=== PATIENT | female | born 1935 | race Caucasian/White ===

== ENCOUNTER 2016-07-22 11:05 | Inpatient (IN) | payer MEDICARE, MEDICAID ==
--- NOTE | 2016-07-22 11:06 | ED Physician Chart ---
Chief Complaint/HPI - Patient Information Date Seen:: 07/22/16 Time Seen:: 11:06 Chief Complaint:: altered level of consciousness History of Present Illness:: 80-year-old female brought in by EMS with acute, constant, moderate, altered level of consciousness that started yesterday. Has associated increased agitation. History limited as patient has underlying dementia History provided by EMS and EMS run sheet Allergies:: Allergies Allergy/AdvReac Type Severity Reaction Status Date / Time MDX No Known Allergies - Nka Allergy Verified 06/27/15 11:21 [No Known Allergies - Nka] Historian:: EMS Review:: Nurse's Note Reviewed, EMS run form Reviewed, Transfer documents Reviewed Review of Systems - Review of Systems Other: Complete system review otherwise unremarkable except as noted in HPI. Past Medical History - Past Medical History Past Medical History: HTN, Thyroid disorder, Dementia Family History: None Social History: Non Smoker, No Alcohol, No Drug Use, Care Facility Surgical History: None Psychiatricy History: Dementia Medication: Reviewed Family Medical History - Family Member Mother History Unknown: Yes Ethnicity: Non- Living Status: Physical Exam - Physical Examination Other:: INITIAL VITAL SIGNS: Reviewed by me GENERAL: Alert and interactive but demented and confused. No acute distress HEAD: Head is normocephalic and atraumatic EYES: EOMI. . No scleral icterus. No conjunctival injection ENT: Moist mucous membranes. NECK: Supple. No masses. Full range of motion RESPIRATORY: No tachypnea. Clear breath sounds bilaterally. No wheezing, rales, or rhonchi CV: Regular rate and rhythm. No murmurs, rubs, or gallops ABDOMEN: Soft, non-distended, non-tender. No guarding. No rebound. No masses. EXTREMITIES: No deformity. No cyanosis. No edema. SKIN: Warm and dry. No obvious rashes. NEUROLOGIC: Alert and oriented. Face is symmetric. Speech is normal. Moves all extremities equally. Motor and sensory distally intact. Labs/Radiology/EKG Results - Lab Results Results: Lab Results 07/22/16 07/22/16 07/22/16 Range/Units 11:25 11:25 11:25 WBC 5.1 D (4.8-10.8) Th/cmm RBC 4.43 (3.80-5.20) Mil/cmm Hgb 13.1 (11.7-16.1) gm/dL Hct 39.3 (35.0-45.0) % MCV 88.6 (81-100) fl MCH 29.6 (27.0-31.0) pg MCHC Differential 33.4 (28.0-36.0) pg RDW 14.5 (11.5-20.0) % Plt Count 188 (150-400) Th/cmm MPV 10.4 fl Neutrophils (Manual) 67 (40-80) % Lymphocytes 20 (20-50) % Monocytes 10 (2-10) % Eosinophils 3 (0-5) % Platelet Estimate ADEQUATE (NORMAL) Platelet Morphology NORMAL (NORMAL) RBC Morph Micro Appear NORMAL (NORMAL) PT 9.7 (9.5-11.5) SECONDS INR 0.98 (0.5-1.4) PTT (Actin FS) 25.0 L (26.0-38.0) SECONDS Sodium 138 (136-145) mEq/L Potassium 3.6 (3.5-5.1) mEq/L Chloride 107 (98-107) mEq/L Carbon Dioxide 23.8 (21.0-31.0) mEq/L Anion Gap 10.8 (7.0-16.0) BUN 33 H (7-25) mg/dL Creatinine 1.0 (0.6-1.2) mg/dL Est GFR ( Amer) TNP Est GFR (Non-Af Amer) TNP BUN/Creatinine Ratio 33.0 Glucose 95 (70-105) mg/dL Whole Bld Lactic Acid (0.60-1.99) mmol/L Calcium 10.4 H (8.6-10.3) mg/dL Total Bilirubin 0.4 (0.3-1.0) mg/dL AST 22 (13-39) U/L ALT 16 (7-52) U/L Alkaline Phosphatase 78 (34-104) U/L Total Protein 8.1 (6.0-8.3) gm/dL Albumin 4.9 (3.7-5.3) gm/dL Globulin 3.2 gm/dL Albumin/Globulin Ratio 1.5 (1.0-1.8) 07/22/16 Range/Units 11:25 WBC (4.8-10.8) Th/cmm RBC (3.80-5.20) Mil/cmm Hgb (11.7-16.1) gm/dL Hct (35.0-45.0) % MCV (81-100) fl MCH (27.0-31.0) pg MCHC Differential (28.0-36.0) pg RDW (11.5-20.0) % Plt Count (150-400) Th/cmm MPV fl Neutrophils (Manual) (40-80) % Lymphocytes (20-50) % Monocytes (2-10) % Eosinophils (0-5) % Platelet Estimate (NORMAL) Platelet Morphology (NORMAL) RBC Morph Micro Appear (NORMAL) PT (9.5-11.5) SECONDS INR (0.5-1.4) PTT (Actin FS) (26.0-38.0) SECONDS Sodium (136-145) mEq/L Potassium (3.5-5.1) mEq/L Chloride (98-107) mEq/L Carbon Dioxide (21.0-31.0) mEq/L Anion Gap (7.0-16.0) BUN (7-25) mg/dL Creatinine (0.6-1.2) mg/dL Est GFR ( Amer) Est GFR (Non-Af Amer) BUN/Creatinine Ratio Glucose (70-105) mg/dL Whole Bld Lactic Acid 1.51 (0.60-1.99) mmol/L Calcium (8.6-10.3) mg/dL Total Bilirubin (0.3-1.0) mg/dL AST (13-39) U/L ALT (7-52) U/L Alkaline Phosphatase (34-104) U/L Total Protein (6.0-8.3) gm/dL Albumin (3.7-5.3) gm/dL Globulin gm/dL Albumin/Globulin Ratio (1.0-1.8) - Radiology Results Results: Single AP VIEW Portable Chest X-ray was interpreted independently and contemporaneously by Mary Crabtree MD: Cardiomegaly Normal mediastinum No lung infiltrates No pneumothorax No soft tissue or bony abnormalities CT head without contrast per radiology No acute disease - EKG Interpretations Comments:: 12-lead EKG Interpretation by Mary Crabtree MD: Normal Sinus Rhythm with ventricular rate of 75 beats per minute Normal axis Normal intervals No acute ST or T wave changes. No obvious STEMI ED Septic Shock - . Is Septic Shock (SBP<90, OR Lactate>4 mmol\L) present?: No Reassessment (Disposition) - Reassessment Reassessment:: Patient appears to have altered level of consciousness. CT head is unremarkable. Labs essentially unremarkable. No infectious source noted. Discussed case with the admitting physician. Patient will need further workup and treatment. Admitted for altered level of consciousness. Reassessment Condition:: Unchanged - Diagnosis Diagnosis:: Altered level of consciousness Hypertension - Patient Disposition Discharge/Transfer:: Acute Care w/in this hosp Admitted to:: Med/Surg Spoke to:: Merritt Kennedy Admitting Medical Physician:: Zack Harper Time:: 13:06 Condition at Disposition:: Stable ED Discharge Plan - Patient Disposition Admit/Discharge/Transfer: Acute Care w/in this hosp
[2016-07-22] MEDS ORDERED: Sodium Chloride 0.9% 1,000 ML IV ONE (11:10)
[2016-07-22] MEDS ORDERED: cefTRIAXone 1 GM in Sodium Chloride 0.9% 50 ML IV ONE (11:10)
[2016-07-22 11:38] LABS: HEMATOCRIT 39.3 % (35.0-45.0); HEMOGLOBIN 13.1 gm/dL (11.7-16.1); MEAN CELL VOLUME 88.6 fl (81-100); MEAN CORPUSCULAR HEMOGLOBIN 29.6 pg (27.0-31.0); MEAN CORPUSCULAR HGB CONC 33.4 pg (28.0-36.0); MEAN PLATELET VOLUME 10.4 fl; PLATELET COUNT 188 Th/cmm (150-400); RED BLOOD COUNT 4.43 Mil/cmm (3.80-5.20); RED CELL DISTRIBUTION WIDTH 14.5 % (11.5-20.0)
[2016-07-22 11:46] LABS: INR 0.98 (0.5-1.4); PROTHROMBIN TIME (TEST) 9.7 SECONDS (9.5-11.5)
--- NOTE | 2016-07-22 11:47 | Diagnostic Imaging Report ---
Portable chest x-ray HISTORY: Pain The heart is enlarged. There is elevation the right hemidiaphragm. No acute focal pulmonary processes. No hilar or mediastinal abnormalities. IMPRESSION: 1. No acute abnormalities 2. Cardiomegaly
[2016-07-22 11:52] LABS: ALB/GLOB RATIO 1.5 (1.0-1.8); ALKALINE PHOSPHATASE 78 U/L (34-104); ANION GAP 10.8 (7.0-16.0); BILIRUBIN,TOTAL 0.4 mg/dL (0.3-1.0); BUN - UREA NITROGEN 33 mg/dL (7-25); CALCIUM SERUM 10.4 mg/dL (8.6-10.3); CARBON DIOXIDE 23.8 mEq/L (21.0-31.0); CHLORIDE 107 mEq/L (98-107); GLUCOSE 95 mg/dL (70-105); POTASSIUM SERUM 3.6 mEq/L (3.5-5.1); SGOT 22 U/L (13-39); SGPT/ALT 16 U/L (7-52); SODIUM SERUM 138 mEq/L (136-145)
[2016-07-22 11:55] LABS: WHITE BLOOD COUNT 5.1 Th/cmm (4.8-10.8)
[2016-07-22 12:00] LABS: EOSINOPHIL 3 % (0-5); NEUTROPHILS 67 % (40-80); TOTAL CELLS COUNTED 100
[2016-07-22 12:01] LABS: PLATELET ESTIMATE ADEQUATE (NORMAL); PLATELET MORPHOLOGY NORMAL (NORMAL)
--- NOTE | 2016-07-22 12:51 | Diagnostic Imaging Report ---
CT scan of the brain without intravenous contrast HISTORY: Stroke, CVA Total DLP equals 541 CTDI equals 31.3 Axial sections were obtained from the base of the skull to the vertex. There is prominence/enlargement of the ventricular system size. Associated enlargement of cerebral sulci and subarachnoid cisterns. Findings are consistent with changes of generalized cerebral atrophy. No acute parenchymal abnormalities. No acute cerebral hemorrhage. Hypodensity is seen within the supratentorial white matter regions without mass effect. The findings may be associated with chronic small vessel ischemic disease. No extra-axial masses or abnormal fluid collections. Atherosclerotic vascular calcification seen in the region of the vertebral arteries at the base of the skull. IMPRESSION: 1. No acute abnormalities 2. Cerebral atrophy 3. Supratentorial white matter changes that may reflect chronic small vessel ischemic disease 4. Atherosclerotic vascular changes
[2016-07-22 12:54] LABS: URINE BILIRUBIN NEGATIVE (NEGATIVE); URINE COLOR YELLOW; URINE GLUCOSE (UA) NEGATIVE (NEGATIVE); URINE KETONE NEGATIVE (NEGATIVE)
[2016-07-22 12:55] LABS: URINE BLOOD NEGATIVE (NEGATIVE); URINE PROTEIN TRACE mg/dL (NEGATIVE); URINE UROBILINOGEN 0.2 E.U./dL (0.2 - 1.0)
[2016-07-22 13:00] LABS: URINE BACTERIA OCCASIONAL /hpf (NONE SEEN); URINE EPITHELIAL CELLS OCCASIONAL /lpf (FEW); URINE RBC 0-2 /hpf (0-5); URINE WBC 0-2 /hpf (0-5)
--- NOTE | 2016-07-22 14:21 | Admit Criteria Form ---
Admit Criteria Forms - Admit Criteria Diagnosis: MENTAL STATUS CHANGE Clinical Indications for Inpatient Care (Place 'X' for any and all applicable criteria): Ongoing inpatient care may be needed for ANY ONE of the following(1)(2)(3)(5)(6) : [X ]I. Suspected serious etiology (eg, medical disorder, ART CLASS MODEL event) of mental status change [ ]II. Danger to self or others not manageable at lower level of care [ ]III. Grave disability (eg, inability to perform self care necessary at lower level of care) [ X]IV. Agitation or inappropriate behavior interfering with care for primary condition (eg, attempting to discontinue lines or drains prematurely, unable to cooperate with respiratory care) [ ]V. Delirium [A] [D][E] as described by ANY ONE of the following(26): [ ]a) Delirium due to alcohol or sedative [F] withdrawal [ ]b) Delirium of uncertain etiology that has not responded to appropriate empiric treatment [ ]c) Delirium that prevents performance of a life-sustaining function (eg, feeding or hydrating oneself) [ ]. General contraindications and/or Inappropriate clinical situations for Observational Care in patients with Mental Status Change, when ANY ONE of the following is required: [ ]a) Prediction of prolongation of LOS based on ANY ONE of the following may be considered as a contraindication for observational care 2, 3, 4, 5, 6, 7, 8, 9, 10, 11 [ ]i) Age > 65 yrs. [ ]ii) Patient arriving by ambulance [ ]iii) Patient with high acuity [ ]iv) Patient requiring vital sign monitoring [ ]v) Patient on IV medication [ ]b) Systolic blood pressures 180mmHg 3,12 [ ]c) Patient with altered mental status including delirium and other alteration of consciousness, (3) [ ]d) Patient whose discharge disposition will be to a alf home or rehabilitation home should not be managed in Emergency Department Observation Unit. CMS rule requires 3 days hospital stay before such placement.3,13 [ ]e) Patient with failure to thrive due to broad array of etiologies 3,16,17 [ ]f) Inability to ambulate 3,14 Extended stay beyond goal length of stay for the primary condition may be needed until ALL of the following are present(3)(5): [ ]a) Underlying medical etiology of mental status change is absent, or has been established and adequately treated [ ]b) Danger to self or others is absent or manageable at lower level of care. [ ]c) Behavior crisis management, including physical or chemical restraints, is not required or available at lower level of car [ ]d) Substance or alcohol withdrawal is absent or manageable at lower level of care. [ ]e) Behavioral symptoms (eg, agitation, somnolence, inappropriate behavior) are absent, or are manageable at lower level of care. The original [facility] [employer] content created by [facility] has been revised. The portions of the content which have been revised are identified through the use of italic text or in bold, and [facility] has neither reviewed nor approved the modified material. All other unmodified content is copyright [facility]. Please see references footnoted in the original [facility] edition 2016 Admit Criteria Met?: Yes
[2016-07-22] MEDS ORDERED: Influenza Vaccine 0.5 mL Syr IM ONE (17:00)
[2016-07-23 06:04] LABS: HEMATOCRIT 38.6 % (35.0-45.0); MEAN CELL VOLUME 88.2 fl (81-100); MEAN CORPUSCULAR HEMOGLOBIN 29.8 pg (27.0-31.0); MEAN CORPUSCULAR HGB CONC 33.7 pg (28.0-36.0); MEAN PLATELET VOLUME 10.1 fl; PLATELET COUNT 161 Th/cmm (150-400); RED BLOOD COUNT 4.38 Mil/cmm (3.80-5.20); RED CELL DISTRIBUTION WIDTH 14.3 % (11.5-20.0); WHITE BLOOD COUNT 5.2 Th/cmm (4.8-10.8)
[2016-07-23 06:10] LABS: ALB/GLOB RATIO 1.4 (1.0-1.8); ALKALINE PHOSPHATASE 69 U/L (34-104); ANION GAP 14.5 (7.0-16.0); BILIRUBIN,TOTAL 0.4 mg/dL (0.3-1.0); BUN - UREA NITROGEN 27 mg/dL (7-25); CALCIUM SERUM 9.6 mg/dL (8.6-10.3); CARBON DIOXIDE 25.3 mEq/L (21.0-31.0); CHLORIDE 104 mEq/L (98-107); CHOLESTEROL 266 mg/dL (<200); CREATININE - SERUM 0.9 mg/dL (0.6-1.2); GLUCOSE 103 mg/dL (70-105); POTASSIUM SERUM 3.8 mEq/L (3.5-5.1); SGOT 20 U/L (13-39); SGPT/ALT 13 U/L (7-52); SODIUM SERUM 140 mEq/L (136-145); TRIGLYCERIDES 110 mg/dL (<150)
[2016-07-23] MEDS ORDERED: Levothyroxine 0.075 Mg Tab PO SCH (07:30)
[2016-07-23] MEDS ORDERED: DULOXETINE HYDROCHLORIDE PO SCH (09:00)
[2016-07-23] MEDS ORDERED: Multivitamin w/ Minerals Tab PO SCH (09:00)
[2016-07-23 09:16] LABS: BAND NEUTROPHILE 3 % (0-10); EOSINOPHIL 2 % (0-5); METAMYELOCYTE 1 % (0-0); NEUTROPHILS 76 % (40-80); PLATELET ESTIMATE ADEQUATE (NORMAL); PLATELET MORPHOLOGY GIANT PLATELETS SEEN (NORMAL); TOTAL CELLS COUNTED 100
[2016-07-23] MEDS ORDERED: Atorvastatin Calcium 10 MG TAB PO SCH (10:00)
--- NOTE | 2016-07-23 11:22 | History & Physical ---
CHIEF COMPLAINT: Agitation and confusion. HISTORY OF PRESENT ILLNESS: This is a 80-year-old lady, resident of [facility] with history of hypothyroidism, hypertension, dyslipidemia, neuropathy, dementia with psychotic features, anxiety and depression who apparently was noted to be somewhat confused at the [place] and was transferred to the ER where she underwent basic workup including a CT of the head showing no acute abnormalities. There is criteria for cerebral atrophy, supratentorial white matter changes that may reflect chronic small vessel ischemic disease and atherosclerotic vascular changes. The patient was admitted for 24-hour observation. Since being admitted the patient has remained stable and appears to be neuro vega at her baseline. PAST MEDICAL HISTORY: As noted above. History of hypertension, hypothyroidism and advanced dementia with psych disorder. PAST SURGICAL HISTORY: None. FAMILY HISTORY: Noncontributory to this admission. ALLERGIES: NKDA. OUTPATIENT MEDICATIONS: Tylenol 1000 mg q. 6 hours p.r.n. for pain, Coreg 3.125 b.i.d., Cymbalta 60 mg b.i.d., gabapentin 300 mg t.i.d., Lopid 600 mg b.i.d. with meals, Femara 2.5 mg daily, levothyroxine 75 mcg daily, lisinopril 20 mg b.i.d. and Namenda 5 mg b.i.d., multivitamins daily and Zoloft 50 mg b.i.d. REVIEW OF SYSTEMS: CONSTITUTIONAL: She denies any fever or chills. CARDIOVASCULAR: No chest pain or palpitations. PULMONARY: No cough or sputum production. GASTROINTESTINAL: No bowel habit changes including no nausea, vomiting, abdominal pain, diarrhea and constipation. GENITOURINARY: Denies any dysuria or hematuria. NEUROLOGIC: Denies any syncopal episodes, denies any headaches, any lightheadedness and any changes in vision. PHYSICAL EXAMINATION: VITAL SIGNS: Temperature 98.1, pulse 80, respirations 18, BP 118/79 and satting 95% on room air. GENERAL: Well nourished, well-developed, awake, alert and oriented x 2, not in acute distress. HEAD AND NECK: Normocephalic and atraumatic. Pupils are reactive to light. CARDIAC: Regular rate and rhythm without any murmurs. LUNGS: Clear to auscultation bilaterally, decreased at the bases. ABDOMEN: Soft, supple, nontender, nondistended and normoactive bowel sounds. EXTREMITIES: There is no edema in lower extremities. LABORATORY DATA: CBC was essentially within normal limits. INR 0.98. Chemistry shows a BUN of 33 and creatinine 1.0, otherwise, within normal limits. LFTs are within normal limits. Cholesterol 266, LDL 188 and HDL 51. UA was essentially within normal limits. DIAGNOSTICS: EKG shows sinus bradycardia at 75. Also there is criteria for left bundle branch block. There are no ST elevations or depressions. A CT scan, please refer to the HPI. Chest x-ray shows no acute abnormalities and cardiomegaly. IMPRESSION AND PLAN: 1. ALOC which appears to have resolved. 2. Hx of dementia with psych/behavioral manifestations. 3. Hx of essential hypertension. 4. Dyslipidemia. 5. Hypothyroidism. 6. Depression. This would be dementia with psych or behavioral disorder, which appears to be stable. PLAN: The patient has been admitted overnight to telemetry with no evidence of persistent altered mental status. Her vital signs and her labs have remained stable and she was started on her medications as scheduled. Given the above findings, I will discharge the patient back to [facility] under the care of Dr. Collier. Pt will be followed by psychiatry as outpatient. JOB# [id number] YUKI
--- NOTE | 2016-07-23 18:55 | Discharge Summary ---
ADMITTING DIAGNOSIS: Altered level of consciousness. SECONDARY DIAGNOSES: Include history of hypertension, hypothyroidism, hyperlipidemia, dementia and depression. DISCHARGE DIAGNOSIS: Resolved altered level of consciousness. CONSULTANTS: There was no consultants used during this admission. MAJOR PROCEDURES: There was a CT scan of the head done on admission showing no acute abnormalities, there was cerebral atrophy, there was supratentorial white matter changes reflecting chronic small vessel ischemic disease and atherosclerotic vascular changes. DISCHARGE MEDICATIONS: Keflex 500mg qid x 10 days, Ibuprofen 600mg tid with meals x 10 days, then q8/prn (pain/swelling) Tylenol 1000 mg q. 6 p.r.n. for severe pain, Coreg 3.125 b.i.d., Cymbalta 60 mg b.i.d., gabapentin 300 mg t.i.d., Lopid 600 mg b.i.d., Femara 2.5 every day, Synthroid 75 mcg every day, lisinopril 20mg b.i.d., Namenda 5 mg b.i.d., multivitamins every day, sertraline 50 mg b.i.d. aspirin 81 every day. BRIEF HOSPITAL COURSE: The patient was transferred from [facility] given an episode of acute mental status, which she could not recall. The patient does have multiple medical problems including dementia with occasional behavior disorder, but she is not able to recall any such events as of late. At the ER, she was noted to be stable and her labs as well as her scan which was noted above, did not show any acute abnormalities. Given her age and her history, she was admitted overnight for 24-hour observation, where she has remained stable with no evidence of altered mental status. CONDITION ON DISCHARGE: Stable. DISPOSITION: The patient will be transferred back to [facility] under the care of Dr. Collier. I instructed staff at [facility] to monitor wound on a daily basis. JOB# [id number] YUKI
== END 2016-07-23 13:03 | disposition short-term general hospital (02) | DRG 884 ==
LOC: ER 11:05 → MSI 13:35
PROVIDERS: ADMIT Internal Medicine; ATTEND Internal Medicine
DX: F03.90 Unspecified dementia, unspecified severity, without behavioral disturbance, psychotic disturbance, mood disturbance, and anxiety (principal); G62.9 Polyneuropathy, unspecified; R55 Syncope and collapse; I10 Essential (primary) hypertension; E03.9 Hypothyroidism, unspecified; E78.5 Hyperlipidemia, unspecified; F32.9 Major depressive disorder, single episode, unspecified; F41.9 Anxiety disorder, unspecified
CPT/HCPCS: 36415-UA; 70450-TC; 71010-TC; 80053-TC; 80061-TC; 81001-TC; 83605; 84443-TC; 85007-TC; 85027-TC; 85610-TC; 85730-TC; 93005; J0696; J7030; J9999